=== PATIENT | male | born 1965 | race Caucasian/White ===

== ENCOUNTER 2018-02-14 11:16 | Outpatient (CLI) ==
--- NOTE | 2018-02-14 12:37 | DI ---
EXAM: Five views of the lumbar spine. History: Lower back pain. Findings: Atherosclerotic vascular calcifications. No acute fracture or subluxation. Moderate to s evere disc space narrowing at L5-S1 with endplate sclerosis and osteophyte formation. Mild disc spac e narrowing seen elsewhere. Moderate to severe facet hypertrophy at L5-S1. Impression: 1. No acute osseous abnormality of the lumbar spine. 2. Moderate to severe degenerative changes at L5-S1.
== END 2018-02-14 11:17 | disposition home or self-care (01) ==
LOC: RAD 11:16
PROVIDERS: ATTEND Nurse Practitioner Family
DX: M54.5 Low back pain (principal); S39.012A Strain of muscle, fascia and tendon of lower back, initial encounter

== ENCOUNTER 2018-02-21 12:37 | Outpatient (CLI) | END 2018-02-21 12:38 | disposition home or self-care (01) | LOC: FCC-LAB 12:37 | PROVIDERS: ATTEND Nurse Practitioner Family | DX: M51.36 Other intervertebral disc degeneration, lumbar region (principal); M54.5 Low back pain; E75.6 Lipid storage disorder, unspecified; Z12.5 Encounter for screening for malignant neoplasm of prostate; Z72.0 Tobacco use | CPT/HCPCS: 36415; 80053; 80061; 85025 ==

== ENCOUNTER 2018-10-24 12:29 | Outpatient (CLI) ==
[2018-10-24] MEDS: ALBUTEROL 0.083% NEB NEB STA (12:53)
== END 2018-10-24 12:30 | disposition home or self-care (01) ==
LOC: CAR 12:29
PROVIDERS: ATTEND Nurse Practitioner Family
DX: R06.02 Shortness of breath (principal); Z72.0 Tobacco use